=== PATIENT | male | born 1950 | race Caucasian/White ===

== ENCOUNTER 2017-11-01 18:10 | Inpatient (IN) | payer OTHER ==
[~2017-11-01] VITALS: Ht 177.8 cm; Wt 67.6 kg
--- NOTE | ~2017-11-01 | EKG ---
[address] [address] ELECTROCARDIOGRAM REPORT Name: MIRIAM MARTIN Room #: 352-P [facility] IN .R.#: [id number] Admission: 11/01/17 Attend Phys: Qasim Reyes MD Discharge: Date of : 48 Report #: [id number] THIS REPORT FOR: //name// [facility] ED Test Date: 2017-11-01 Test Time: 18:19:16 Pat Name: MIRIAM MARTIN Department: Room: Gender: M Child Welfare Assistant: : 1950 Requested By: Gayatri Billy Order Number: [id number] MD: Eron Delcid Measurements Intervals [place] Rate: 86 P: 44 WV: 156 QRS: 26 QRSD: 88 T: 43 QT: 353 QTc: 423 Interpretive Statements Sinus rhythm Normal tracing Compared to ECG 11/29/2013 20:27:48 no significant change was found Electronically Signed On 11-02-2017 9:19:05 CDT by Eron Delcid [email or web address] <ELECTRONICALLY SIGNED> By: Eron Delcid MD, [facility] 11/02/17918 18 18 Eron Delcid MD, FACC /EPI
[~2017-11-01 18:10] MED LIST: ASA81BEC PO; ATENOLOL 50MG T50 M1 PO; LISINOPRIL20 MG PO; METFORMIN HCL500 MG PO; XANAX 0.25 MG0.25 MG PO; ZESTRIL40 MG PO; ZOCOR40 MG PO; ZOCOR80 MG PO
[2017-11-01 18:27] VITALS: BP 137/71
[2017-11-01 19:13] LABS: HEMATOCRIT 34.3 % (42.0-52.0); HEMOGLOBIN 11.5 gm/dL (14.0-18.0); MCH 29.5 pg (26.0-34.0); MCHC 33.4 g/dL (28.0-37.0); MCV 88.4 fL (80.0-100.0); PLATELET COUNT 159 thou/uL (150-400); RBC 3.88 mil/uL (4.50-6.00); RDW 14.4 % (10.5-14.5); WBC 16.1 thou/uL (4.0-11.0)
[2017-11-01 19:18] LABS: ANION GAP 7 mmol/L (7-16); BUN 15 mg/dL (7-18); CALCIUM 9.6 mg/dL (8.5-10.1); CHLORIDE 95 mmol/L (98-107); CO2 26 mmol/L (21-32); CREATININE 1.3 mg/dL (0.7-1.3); GLUCOSE 148 mg/dL (74-106); POTASSIUM 4.2 mmol/L (3.5-5.1); SODIUM 128 mmol/L (136-145)
[2017-11-01 19:23] LABS: APTT 29.4 Seconds (24.5-32.8); PROTIME 10.7 Seconds (9.3-11.4)
[2017-11-01 19:27] LABS: ALBUMIN 3.8 g/dL (3.4-5.0); SGOT 11 U/L (15-37); SGPT 12 U/L (30-65); TOTAL BILIRUBIN 0.9 mg/dL (<0.1-1.0); TROPONIN-I < 0.04 ng/mL (<0.06)
[2017-11-01 19:36] LABS: URINE BILIRUBIN NEGATIVE (Negative); URINE BLOOD TRACE (Negative); URINE CLARITY CLEAR; URINE COLOR YELLOW; URINE GLUCOSE-RANDOM* NEGATIVE (Negative); URINE KETONES NEGATIVE (Negative); URINE LEUKOCYTES-REFLEX NEGATIVE (Negative); URINE NITRITE-REFLEX NEGATIVE (Negative); URINE PROTEIN (DIPSTICK) TRACE (Negative); URINE UROBILINOGEN 0.2 E.U./dl (0.2-1.0)
[2017-11-01 19:38] LABS: ABSOLUTE NEUTROPHILS 13.4 thou/uL (1.4-8.2); METAMYELOCYTES 1 %
[2017-11-01 19:44] LABS: AMP/METHAMP Negative (Negative); BARBITURATES Negative (Negative); BENZODIAZEPINES Negative (Negative); COCAINE Negative (Negative); METHADONE Negative (Negative); OPIATES Negative (Negative); PCP Negative (Negative)
[2017-11-01 22:54] VITALS: BP 118/76
[2017-11-01 23:15] VITALS: BP 143/78
[2017-11-01 23:18] VITALS: BP 137/71
[2017-11-02 04:02] VITALS: BP 133/80
[2017-11-02 05:17] LABS: HEMATOCRIT 32.9 % (42.0-52.0); MCH 29.5 pg (26.0-34.0); MCHC 33.4 g/dL (28.0-37.0); MCV 88.5 fL (80.0-100.0); RBC 3.72 mil/uL (4.50-6.00); RDW 14.3 % (10.5-14.5); WBC 14.2 thou/uL (4.0-11.0)
[2017-11-02 05:24] LABS: CALCIUM 9.2 mg/dL (8.5-10.1); CREATININE 1.2 mg/dL (0.7-1.3)
[2017-11-02 07:45] VITALS: BP 133/74
[2017-11-02 11:42] VITALS: BP 145/83
[2017-11-02 15:49] VITALS: BP 143/76
[2017-11-02] MEDS ORDERED: LEXAPRO20 MG PO (17:08)
[2017-11-02] MEDS ORDERED: TRAZODONE HCL50 MG PO (17:08)
[2017-11-02] MEDS ORDERED: RISPERDAL0.5 MG PO (17:12)
[2017-11-02 20:00] VITALS: BP 137/73
[2017-11-03 05:33] VITALS: BP 129/77
[2017-11-03 05:36] LABS: HEMATOCRIT 28.3 % (42.0-52.0); HEMOGLOBIN 9.7 gm/dL (14.0-18.0); MCH 30.4 pg (26.0-34.0); MCHC 34.2 g/dL (28.0-37.0); MCV 88.8 fL (80.0-100.0); RBC 3.18 mil/uL (4.50-6.00); RDW 14.2 % (10.5-14.5); WBC 10.4 thou/uL (4.0-11.0)
[2017-11-03 05:52] LABS: CALCIUM 8.7 mg/dL (8.5-10.1)
[2017-11-03 08:08] VITALS: BP 150/81
[2017-11-03 12:00] VITALS: BP 125/65
[2017-11-03 16:56] VITALS: BP 145/74
[2017-11-03 19:30] VITALS: BP 157/88
[2017-11-04 04:35] VITALS: BP 141/82
[2017-11-04 05:35] LABS: ABSOLUTE NEUTROPHILS 6.7 thou/uL (1.4-8.2); BASOPHILS 0.3 % (0.0-2.0); EOSINOPHILS 1.2 % (0.0-3.0); HEMATOCRIT 29.7 % (42.0-52.0); HEMOGLOBIN 10.1 gm/dL (14.0-18.0); LYMPHOCYTES 10.4 % (24.0-44.0); MCH 30.2 pg (26.0-34.0); MCHC 33.9 g/dL (28.0-37.0); MCV 89.2 fL (80.0-100.0); MONOCYTES 9.5 % (1.0-8.0); PLATELET COUNT 179 thou/uL (150-400); POLYS 78.6 % (36.0-66.0); RBC 3.33 mil/uL (4.50-6.00); WBC 8.5 thou/uL (4.0-11.0)
[2017-11-04 05:54] LABS: CALCIUM 9.1 mg/dL (8.5-10.1)
[2017-11-04 07:54] VITALS: BP 159/97
[2017-11-04 11:44] LABS: PROTIME 9.6 Seconds (9.3-11.4)
[2017-11-04 12:27] VITALS: BP 147/97
[2017-11-04 16:46] VITALS: BP 153/85
[2017-11-04 20:00] VITALS: BP 169/97
[2017-11-05] VITALS (15 sets, daily range): BP systolic 105–172; BP diastolic 59–86
[2017-11-05 13:52] LABS: HEMATOCRIT 31.9 % (42.0-52.0); HEMOGLOBIN 10.7 gm/dL (14.0-18.0); MCH 29.8 pg (26.0-34.0); MCHC 33.7 g/dL (28.0-37.0); MCV 88.5 fL (80.0-100.0); RBC 3.61 mil/uL (4.50-6.00); RDW 13.9 % (10.5-14.5); WBC 9.6 thou/uL (4.0-11.0)
[2017-11-05 14:08] LABS: ALBUMIN 2.8 g/dL (3.4-5.0); CALCIUM 8.9 mg/dL (8.5-10.1); CREATININE 0.9 mg/dL (0.7-1.3); POTASSIUM 3.5 mmol/L (3.5-5.1); TOTAL BILIRUBIN 0.7 mg/dL (<0.1-1.0); TOTAL PROTEIN 7.4 g/dL (6.4-8.2)
[2017-11-06 04:00] VITALS: BP 150/94
[2017-11-06 07:45] VITALS: BP 109/82
[2017-11-06 12:09] VITALS: BP 117/66
[2017-11-06] MEDS ORDERED: METFORMIN HCL500 MG PO (12:42)
[2017-11-06] MEDS ORDERED: AUGMENTIN 875-1 EACH PO (12:42)
[2017-11-06] MEDS ORDERED: TYLENOL325 MG PO (12:42)
[2017-11-06] MEDS ORDERED: ASA81BEC PO (12:42)
[2017-11-06] MEDS ORDERED: PROBIOTIC1 EAC1 PO (12:47)
[2017-11-06] MEDS ORDERED: COLACE100 MG PO (12:48)
[2017-11-06 13:09] VITALS: BP 117/66
== END 2017-11-06 15:50 | disposition home or self-care (01) | DRG 871 ==
LOC: ER 18:10 → 3W 21:47 → EROBS 21:47 → 3W 23:06 → ENTRNSPT 11-06 15:43 → EDTRNSPTSTS 11-06 15:47 → 3W 11-06 15:50
PROVIDERS: Emergency Medicine; Hospitalist; Nurse Practitioner Family; Physician Assistant; Radiology Diagnostic Radiology; Surgery
PROC: 0H97XZZ Drainage of Abdomen Skin, External Approach (ICD-10-PCS; principal; 2017-11-05)
DX: A41.9 Sepsis, unspecified organism (principal); K35.2 Acute appendicitis with generalized peritonitis; I10 Essential (primary) hypertension; E78.00 Pure hypercholesterolemia, unspecified; E78.5 Hyperlipidemia, unspecified; E11.9 Type 2 diabetes mellitus without complications; F41.9 Anxiety disorder, unspecified; Z79.82 Long term (current) use of aspirin; Z79.899 Other long term (current) drug therapy
CPT/HCPCS: 10879

== ENCOUNTER 2019-05-07 18:22 | Emergency (ER) | payer OTHER ==
[~2019-05-07] VITALS: Ht 175.3 cm; Wt 63.5 kg
[~2019-05-07 18:22] MED LIST changes: +AUGMENTIN 875-1 EACH PO; +COLACE100 MG PO; +HYDROCODONE-AP1 EAC6 PO; +IRON325 PO; +LEXAPRO20 MG PO; +PROBIOTIC1 EAC1 PO; +RISPERDAL0.5 MG PO; +TRAZODONE HCL50 MG PO; +TYLENOL325 MG PO
[2019-05-07 19:34] LABS: ABSOLUTE NEUTROPHILS 2.1 thou/uL (1.4-8.2); BASOPHILS 1.1 % (0.0-2.0); EOSINOPHILS 1.8 % (0.0-3.0); HEMATOCRIT 34.6 % (42.0-52.0); HEMOGLOBIN 11.5 gm/dL (14.0-18.0); LYMPHOCYTES 32.2 % (24.0-44.0); MCH 31.6 pg (26.0-34.0); MCHC 33.2 g/dL (28.0-37.0); MONOCYTES 10.4 % (1.0-8.0); PLATELET COUNT 141 thou/uL (150-400); POLYS 54.5 % (36.0-66.0); RBC 3.64 mil/uL (4.50-6.00); WBC 3.9 thou/uL (4.0-11.0)
[2019-05-07 19:37] LABS: URINE BLOOD NEGATIVE (Negative); URINE CLARITY CLEAR; URINE COLOR YELLOW; URINE GLUCOSE-RANDOM* NEGATIVE (Negative); URINE KETONES 2+ (Negative); URINE LEUKOCYTES-REFLEX NEGATIVE (Negative); URINE NITRITE-REFLEX NEGATIVE (Negative); URINE PROTEIN (DIPSTICK) TRACE (Negative)
[2019-05-07 19:46] LABS: CALCIUM 8.2 mg/dL (8.5-10.1); CREATININE 0.8 mg/dL (0.7-1.3); TOTAL BILIRUBIN 0.5 mg/dL (<0.1-1.0); TOTAL PROTEIN 6.9 g/dL (6.4-8.2)
[2019-05-07 19:47] LABS: POTASSIUM 2.7 mmol/L (3.5-5.1)
[2019-05-07 20:19] LABS: ICTOTEST (BILI CONFIRMATORY) Negative (Negative); URINE BILIRUBIN NEGATIVE (Negative)
[2019-05-07 20:36] VITALS: BP 156/93
== END 2019-05-07 20:43 | disposition home or self-care (01) ==
LOC: ER 18:22
PROVIDERS: Nurse Practitioner Family
DX: E87.6 Hypokalemia (principal); E11.9 Type 2 diabetes mellitus without complications; I10 Essential (primary) hypertension; E78.5 Hyperlipidemia, unspecified; F41.9 Anxiety disorder, unspecified; F32.9 Major depressive disorder, single episode, unspecified; F10.10 Alcohol abuse, uncomplicated; Z86.2 Personal history of diseases of the blood and blood-forming organs and certain disorders involving the immune mechanism; Y90.9 Presence of alcohol in blood, level not specified

== ENCOUNTER 2019-06-07 19:04 | Inpatient (IN) | payer OTHER ==
[~2019-06-07] VITALS: Ht 152.4 cm; Wt 68.0 kg
[2019-06-07 19:05] VITALS: BP 187/125
[2019-06-07 20:51] LABS: ABSOLUTE NEUTROPHILS 7.1 thou/uL (1.4-8.2); BASOPHILS 0.4 % (0.0-2.0); EOSINOPHILS 0.1 % (0.0-3.0); HEMATOCRIT 34.9 % (42.0-52.0); HEMOGLOBIN 11.6 gm/dL (14.0-18.0); LYMPHOCYTES 8.5 % (24.0-44.0); MCH 32.9 pg (26.0-34.0); MCHC 33.2 g/dL (28.0-37.0); MCV 98.9 fL (80.0-100.0); MONOCYTES 9.8 % (1.0-8.0); PLATELET COUNT 194 thou/uL (150-400); POLYS 81.2 % (36.0-66.0); RBC 3.53 mil/uL (4.50-6.00); RDW 15.3 % (10.5-14.5); WBC 8.8 thou/uL (4.0-11.0)
[2019-06-07 21:01] LABS: APTT 27.5 Seconds (24.5-32.8); PROTIME 10.7 Seconds (9.3-11.4)
[2019-06-07 23:32] VITALS: BP 186/99
[2019-06-08 00:34] VITALS: BP 170/90
--- NOTE | 2019-06-08 01:16 | NUR ---
ADMISSION ASSESSMENT COMPLETED. PT WITH A LEFT HIP FRACTURE. RATES PAIN AT AT A 5/10 AND REFUSES PAIN MEDS AT THIS TIME. PT ON ROOM AIR. ALERT AND ORIENTED X 4. GIVEN URINAL.SCDS PLACED. AFEBRILE. IVF STARTED. DENIES ANY DIZZINESS. WILL CONTINUE WITH POC TILL EOS.
[2019-06-08 02:45] LABS: ALBUMIN 2.9 g/dL (3.4-5.0); ANION GAP 14 mmol/L (7-16); BUN 10 mg/dL (7-18); CALCIUM 8.6 mg/dL (8.5-10.1); CHLORIDE 104 mmol/L (98-107); CO2 21 mmol/L (21-32); CREATININE 1.2 mg/dL (0.7-1.3); GLUCOSE 124 mg/dL (74-106); MAGNESIUM 1.4 mg/dL (1.8-2.4); POTASSIUM 4.6 mmol/L (3.5-5.1); SGOT 136 U/L (15-37); SGPT 149 U/L (30-65); SODIUM 139 mmol/L (136-145); TOTAL BILIRUBIN 0.8 mg/dL (<0.1-1.0); TOTAL PROTEIN 6.4 g/dL (6.4-8.2); TROPONIN-I <0.06 ng/mL (<0.06)
[2019-06-08 04:31] VITALS: BP 148/81
[2019-06-08 08:05] VITALS: BP 150/67
--- NOTE | 2019-06-08 08:40 | EKG ---
[address] [address] ELECTROCARDIOGRAM REPORT Name: MIRIAM MARTIN Room #: 444-P ADM IN M.R.#: [id number] Admission: 06/07/19 Attend Phys: Candelario Fernandez MD Discharge: Date of : 48 Report #: [id number] THIS REPORT FOR: //name// [facility] ED Test Date: 2019-06-07 Test Time: 20:13:01 Pat Name: MIRIAM MARTIN Department: Room: Count includes the [facility] Gender: M Business Area Director: MELLISSA : 1950 Requested By: Adiel Solitario Order Number: [id number] MD: Da Samuels Measurements Intervals [place] Rate: 80 P: 69 [place]: 153 QRS: 56 QRSD: 83 T: 10 QT: 383 QTc: 442 Interpretive Statements Sinus rhythm Artifact in lead(s) I,II,III,aVR,aVL,aVF,V1 Compared to ECG 11/01/2017 18:19:16 No significant changes Electronically Signed On 06-08-2019 8:40:17 SENIOR PREMIUM AUDITOR by Da Samuels [email or web address] <ELECTRONICALLY SIGNED> By: Da Samuels MD 06/08/19 0840 12 12 Da Samuels MD /EPI
[2019-06-08 19:17] VITALS: BP 164/102
[2019-06-08 19:43] LABS: HEMATOCRIT 32.8 % (42.0-52.0); HEMOGLOBIN 10.9 gm/dL (14.0-18.0); MCH 32.7 pg (26.0-34.0); MCHC 33.2 g/dL (28.0-37.0); MCV 98.6 fL (80.0-100.0); RBC 3.33 mil/uL (4.50-6.00); RDW 15.1 % (10.5-14.5); WBC 6.3 thou/uL (4.0-11.0)
--- NOTE | 2019-06-08 20:40 | NUR ---
PT CARE ASSUMED AT 0700. A&Ox4. pt on npo for surgery today. SURGERY SCHEDULED FOR 1530. PT RECEIVED A ONE TIME DOSE OF MADNESIUM DUE TO IT BEING LOW. PT HAD A VERY LARGE BM BEFORE SURGERY. PT. WENT TO SURGERY AT 1445 AND SIS NOT COME BACK UNTIL 1800. PT HAS SCD IN PLACE. ABDUCTER PILLOW IN PLACE. PAIN MANGED WELL. PT. IS ON A CLEAR LIQUID DIET AND CAN ADVANCE TOLERATED. BED IS LOCKED AND IN LOW POSITION. BED ALARM ON AND CALL LIGHT WITHIN REACH.
[2019-06-09] VITALS (9 sets, daily range): BP systolic 99–155; BP diastolic 67–89
--- NOTE | 2019-06-09 03:46 | NUR ---
PT IS S/P L HIP SURGERY. DRSG IN PLACE AND IS C/D. ICE JACQUELINE IN PLACE. ABDUCTOR PILLOW ALSO IN PLACE AND PT EDUCATED ON MANTAINING HIP PRECAUTIONS WHILE IN BED. IV FLUIDS INFUSING. AFEBRILE. DENIES PAIN. NO FURTHER CONCERNS.
[2019-06-09 06:14] LABS: HEMATOCRIT 27.6 % (42.0-52.0); HEMOGLOBIN 9.3 gm/dL (14.0-18.0); MCH 33.2 pg (26.0-34.0); MCHC 33.7 g/dL (28.0-37.0); MCV 98.5 fL (80.0-100.0); RBC 2.8 mil/uL (4.50-6.00); RDW 15.1 % (10.5-14.5); WBC 4.8 thou/uL (4.0-11.0)
[2019-06-09 06:20] LABS: URINE BILIRUBIN NEGATIVE (Negative); URINE BLOOD TRACE (Negative); URINE CLARITY CLEAR; URINE COLOR YELLOW; URINE GLUCOSE-RANDOM* NEGATIVE (Negative); URINE KETONES 2+ (Negative); URINE LEUKOCYTES-REFLEX NEGATIVE (Negative); URINE NITRITE-REFLEX NEGATIVE (Negative); URINE PROTEIN (DIPSTICK) TRACE (Negative); URINE SPECIFIC GRAVITY 1.025 (1.005-1.035); URINE UROBILINOGEN 0.2 E.U./dl (0.2-1.0)
[2019-06-09 06:33] LABS: CALCIUM 8.4 mg/dL (8.5-10.1); CREATININE 1.1 mg/dL (0.7-1.3); MAGNESIUM 1.7 mg/dL (1.8-2.4); POTASSIUM 4.1 mmol/L (3.5-5.1)
--- NOTE | 2019-06-09 12:26 | NUR ---
ASSESSMENT-PT LIVES IN AN APT WITH HIS . STILL WORKS OUTSIDE OF THE HOME. PT SAYS THEY BOTH DRIVE. PT THINKS HE MAY HAVE A WALKER AT HOME ALREADY. TRIED TO CALL HIS AND LEFT MESSAGE TO TRY TO DETERMINE IF THEY DO HAVE A WALKER AT HOME ALREADY. ALSO IF THEY DO, ASKED HER TO BRING THE WALKER TO THE HOSPITAL SO THAT PHYSICAL THERAPY CAN MAKE SURE IT IS THE RIGHT HEIGHT & STURDY. PT SAYS HE DOES NOT THINK HE HAS AN APPT FOR THERAPY YET FOR HOME. FOLLOWING TO ASSIST WITH DC PLANNING.
--- NOTE | 2019-06-09 20:29 | NUR ---
PT CARE ASSUMED AT 0700. A&Ox4 WITH PERIODIC CONFUSION. PT HAS CONFUSION FOR APPROX. 2 HOURS AROUND NOON TWO DAYS IN A ROW. DURING THIS TIME HE HAS A BM IN BED AND THEN PLAYS WITH IT. PT. RECEIVED ANTIBIOTICS. PT HAD PT TODAY AND TOLERATED WELL. PT BED LOCKED, LOW POSITION. BED ALARM ON. IV FLUIDS RUNNING IV PATENT INTACT.
[2019-06-10] VITALS (9 sets, daily range): BP systolic 133–1143; BP diastolic 65–94
--- NOTE | 2019-06-10 03:31 | NUR ---
ASSESSMENT: PT IS ALERT TIMES 1-2. PT IS PLEASANTLY CONFUSED TO PLACE, TIME AND SITUATION. DOES FOLLOW MOST SIMPLE COMMANDS. UP IS UNSTEADY AND IMPLUSIVE WHEN HE HAS TO URINATE. VSS, AFEBRILE. ABDUCTOR PILLOW USED FOR MOST OF THE NIGHT. LOW GRADE TEMP AT THE BEGINNING OF THE SHIFT, TYLENOL GIVEN WITH GOOD RESULTS. PECO DRESSING INTACT. SLOW PROGRESS, WILL CONTINUE TO MONITOR,
[2019-06-10 05:20] LABS: HEMOGLOBIN 7.9 gm/dL (14.0-18.0); MCH 33.5 pg (26.0-34.0); MCHC 34.4 g/dL (28.0-37.0); MCV 97.2 fL (80.0-100.0); RBC 2.36 mil/uL (4.50-6.00); RDW 14.5 % (10.5-14.5); WBC 4.1 thou/uL (4.0-11.0)
[2019-06-10] MEDS ORDERED: ENOXAPARIN40 MG/0.1 SUBQ (13:28)
--- NOTE | 2019-06-10 15:08 | NUR ---
CLINICALS AND REFERAL SENT TO MICHELL AT [facility]. FAX CONFIRMATION RECEIVED, CALLED RECEIVED.
--- NOTE | 2019-06-10 17:35 | NUR ---
RECEIVED CALL BACK FROM MICHELL IN ADMISSIONS AT [facility] SAYING THEY WOULD NOT BE ABLE TO ACCEPT PT TODAY THIS WAS AT 1645. SHE ARRANGED SECURE WC FOR 1100 TOMORROW. LEFT MESSAGE FOR AND PT IS AWARE. PT WILL GO TO A SEMI-PVT ROOM AND THEN TRANSITION TO A PVT ROOM ONCE AVAILABLE. PT AGREEABLE TO THIS. CHART COPY DONE. WILL NEED TO CALL [phone] TO GIVE REPORT & ASK THEM NUMBER TO FAX ORDERS. SECURE VAN [phone].
--- NOTE | 2019-06-10 19:15 | NUR ---
Assumed care of pt at 0700. Pt alert and oriented x3-4 but impulsive at times. Denies pain. Dressing intact. Pt got out of bed, bed alarm went off, PERSONAL FINANCIAL PLANNER and physical therapy went in the room when patient was up by himself. Per PERSONAL FINANCIAL PLANNER and physical therapy report, patient did not fall but bent his right knee and close to the floor. Knee did not touch the floor. Provider aware. States no concerns, patient still able to discharge. Nurse applications manager aware. Pt will discharge tomorrow at 11 am by wheelchair van. Pt to be moved to room 436, close to nurses station. Report given to noc RN. Fall precautions in place.
[2019-06-11 03:37] VITALS: BP 179/79
[2019-06-11 09:30] VITALS: BP 176/100
--- NOTE | 2019-06-11 09:34 | NUR ---
PATIENT ALERT AND ORIENTED X4 BUT IS VERY FORGETFUL AND IMPULSIVE. TRIES TO GET UP BY SELF. REMINDED SEVERAL TIMES. TAKES GOWN OFF. PULLED IV OUT WHEN GETTING UP. REPLACED. SLEPT VERY LITTLE OPERATIONS EXECUTIVE.
--- NOTE | 2019-06-11 11:39 | NUR ---
PT. CARE ASSUMED AT 0700. A&Ox4. PT. VERY IMPULSIVE. CROSSES LEGS. ABDUCTER PILLOW APPLIED AND GOT UP WITH THE PILLOW STRAPPED TO HIM. PT. IS DISORIENTED AT TIMES. PT. SITTING UP IN RECLINER. VERY PLEASANT. [facility] JADEN RILEY RN. AT 1130. PT. DISCHARGED AT 1130 WITH WHEELCHAIR TO FACILITY.
--- NOTE | 2019-06-15 15:34 | O ---
[facility] [place] [address] OPERATIVE REPORT Name: MIRIAM MARTIN Room #: 436-P [facility] IN M.R.#: [id number] Admission: 06/07/19 Attend Phys: Candelario Fernandez MD Discharge: 06/11/19 Date of : 48 Report #: [id number] THIS REPORT FOR: //name// CC: [place] physician/PCP Candelario Fernandez DATE OF SERVICE: 06/08/2019 PREOPERATIVE DIAGNOSES: Left femoral neck fracture, subcapital, displaced, status post fall. POSTOPERATIVE DIAGNOSIS: Left femoral neck fracture, subcapital, displaced, status post fall. PROCEDURE PERFORMED: Left hip hemiarthroplasty. SURGEON: Larry Watkins MD BEAM HOUSE INSPECTOR: None. ANESTHESIA: General. FLUIDS: 850 mL crystalloid. ESTIMATED BLOOD LOSS: Approximately 50 mL. IMPLANTS UTILIZED: [employer] Sy[employer] cemented stem size 10 with a 9 mm distal centralizer, 48 mm head with a -3 taper sleeve assembly. DESCRIPTION OF PROCEDURE: After proper identification of the patient and operative site in preoperative holding area, the operative site was signed by myself. The patient was initially seen by my partner, Dr. Joel Watson who was instrumentation fitter last evening. The patient has been seen by Dr. Fernandez and cleared from the medical standpoint by the hospitalist group. Treatment options were reviewed. Risks, benefits, alternatives, and potential complications were discussed and the patient wished to proceed with the above. The patient was brought back to the operative suite after induction of satisfactory general anesthesia. He was carefully positioned in the right lateral decubitus position. Pelvis was stabilized. Left hip was sterilely prepped and draped. Final skin draping was with Ioban. Posterior approach was planned. Skin was incised sharply. Full thickness skin flaps were developed. Gluteus gage fibers were spread bluntly. The short external rotators and piriformis tendon were identified. A Charnley retractor had been carefully placed. Piriformis was released. Short external rotators were divided. T-shaped capsulotomy was performed. Fracture hematoma was evacuated. Some comminution at the neck was noted and the femoral head was removed. Acetabulum was intact. No significant [address] [address] OPERATIVE REPORT Name: MIRIAM MARTIN Room #: 436-P [facility] IN [facility].#: [id number] Admission: 06/07/19 Attend Phys: Candelario Fernandez MD Discharge: 06/11/19 Date of : 48 Report #: [id number] chondral wear was noted. A 48 mm head provided the best overall fit and stability. At this point, a femoral neck osteotomy approximately 1 cm above the lesser trochanter was performed to freshen up the fracture site. The canal was reamed by hand and broached up to a size 10, size 11 seemed to be slightly proud. Trial head and neck assembly were then utilized. Trial implants were removed. Cement restrictor was placed. Canal was brushed, irrigated and prepared for cement pressurization. Cement was mixed on the back table and injected and pressurized and then a size 10 stem was inserted in an anteverted position. Excess bone cement was removed. At this point, trial head, neck assembly were utilized and the -3 sleeve with a 48-mm head provided the best ability to achieve hip stability while maintaining leg lengths as equal as possible. The patient had full hip extension as well as flexion. Negative shuck test. Wound had been irrigated with antibiotic irrigant multiple times throughout the procedure. Final head and sleeve assembly were prepared on the back table and then impacted into position. Antibiotic irrigant was again utilized. Hip was reduced. Capsule was repaired with #2 FiberWire. Piriformis was repaired with #2 FiberWire. Irrigation was again performed and then 1 gram of vancomycin powder was utilized, half at deep, half of it superficial; #1 Vicryl was used to close the gluteal fascia, 2-0 Vicryl for subcutaneous tissues, final skin closure was with luigi. Sterile dressing was applied as well as hip abduction pillow. He was awakened and transferred to the recovery room in stable condition. <ELECTRONICALLY SIGNED> By: Larry Watkins MD 06/15/19 1534 1711 1728 Larry Watkins MD /nt
== END 2019-06-11 11:30 | DRG 469 ==
LOC: ER 19:04 → 4S 20:39 → EROBS 20:39 → 4S 23:42
PROVIDERS: Emergency Medicine; Physician Assistant Surgical; ADMIT Internal Medicine
PROC: 0SRS019 Replacement of Left Hip Joint, Femoral Surface with Metal Synthetic Substitute, Cemented, Open Approach (ICD-10-PCS; principal; 2019-06-08)
DX: S72.002A Fracture of unspecified part of neck of left femur, initial encounter for closed fracture (principal); E43 Unspecified severe protein-calorie malnutrition; E11.9 Type 2 diabetes mellitus without complications; I10 Essential (primary) hypertension; E78.5 Hyperlipidemia, unspecified; F32.9 Major depressive disorder, single episode, unspecified; E83.42 Hypomagnesemia; F41.9 Anxiety disorder, unspecified; S72.012A Unspecified intracapsular fracture of left femur, initial encounter for closed fracture; Z90.49 Acquired absence of other specified parts of digestive tract; Z47.89 Encounter for other orthopedic aftercare; W01.0XXA Fall on same level from slipping, tripping and stumbling without subsequent striking against object, initial encounter; Y93.89 Activity, other specified; Y92.039 Unspecified place in apartment as the place of occurrence of the external cause; Y99.8 Other external cause status; Z79.899 Other long term (current) drug therapy
CPT/HCPCS: 10195; 50010; 50101; 50382; 50414; 51057; 51130; 51225; 51226; 51412; 51771; 53000; 53078; 53369; 56460; 56525; 56530; 57103; 62110; 62900; 70005